=== PATIENT | female | born 1975 | race Asian ===

== ENCOUNTER → 2023-12-27 | Outpatient (CLI) | payer OTHER, SELFPAY ==
[2023-12-27 16:08] LABS: ALB/GLOB Ratio 0.9 RATIO (0.9-2.4); AST(SGOT) 21 U/L (15-37); Alanine Aminotransfer ALT/SGPT 32 U/L (13-56); Albumin, Serum 3.7 g/dL (3.2-5.0); Alkaline Phosphatase 71 U/L (45-117); Anion Gap 6 (5-15); BUN 19 mg/dL (7-18); BUN/Creat Ratio 23.4 RATIO (10-20); Calcium,Total 9.3 mg/dL (8.5-10.1); Chloride 108 mmol/L (98-107); Creatinine, Serum 0.81 mg/dL (0.55-1.02); EST Glomerular Filtration Rate 79 mL/min (>60); Est Glom Filt Rate - Afr Amer 96 mL/min (>60); Glucose 95 mg/dL (74-106); Potassium 4.5 mmol/L (3.5-5.1); Protein, Total 7.7 g/dL (6.4-8.2); Sodium Level 140 mmol/L (136-145)
== END | disposition home or self-care (01) ==
LOC: BIMLAB 11:55
PROVIDERS: Visit Provider Family Medicine
DX: I10 Essential (primary) hypertension (principal)
CPT/HCPCS: 36415; 80053

== ENCOUNTER → 2025-01-29 | Outpatient (CLI) | payer MEDICAID, SELFPAY ==
[2025-01-29 15:19] LABS: Hematocrit 41.0 % (37-47); Hemoglobin 13.8 g/dL (12.0-15.0); Immature Granulocytes Count 0.020 X10^3/uL (0.0-0.0); Mean Corp Hgb Conc 33.7 g/dL (32-36); Mean Corpuscular Volume 95.3 fL (81-99); Mean Platelet Vol. 10.9 fl (6.2-12.0); NRBC Flagged by Analyzer 0 % (0-5); Platelet Count 241 K/mm3 (150-450); RBC Distribution Width CV 12.0 % (11.6-14.6); RBC Distribution Width SD 42.4 fl (35.1-43.9); Red Blood Count 4.30 M/mm3 (4.2-5.4); White Blood Count 7.8 K/mm3 (4.4-11.0)
[2025-01-29 15:39] LABS: AST(SGOT) 23 U/L (<=31); Alanine Aminotransfer ALT/SGPT 19 U/L (<=34); Albumin, Serum 4.6 g/dL (3.5-5.0); Alkaline Phosphatase 62 U/L (35-104); Anion Gap 12 (5-15); BUN 22 mg/dL (4-19); BUN/Creat Ratio 30.4 RATIO (10-20); Calcium,Total 9.4 mg/dL (7.6-11.0); Carbon Dioxide 24.0 mmol/L (21.0-32.0); Chloride 106 mmol/L (98-108); Globulin 3.0 g/dL (2.2-4.2); Glucose 89 mg/dL (70-99); Potassium 4.3 mmol/L (3.3-5.1)
--- OUTSIDE RECORDS SUMMARY | 2025-01-29 16:41 | XMS RPT_ITS | CCD ---
Author Organization [facility] Care Team Providers Care Pipe Changer Name Role Phone VOLSTEPHANIE Llamas DO Unavailable Unavailable VOLL, STEPHANIE DO Unavailable Unavailable JEANE TORO CNP Unavailable Unavailable VOLL, STEPHANIE DO Unavailable Unavailable JEANE TORO CNP Unavailable Unavailable PROVIDER, UNKNOWN Unavailable Unavailable PROVIDER, UNKNOWN Unavailable Unavailable JEANE TORO CNP Unavailable Unavailable JEANE TORO CNP Unavailable Unavailable JEANE TORO CNP Unavailable Unavailable JEANE TORO CNP Unavailable Unavailable PROVIDER, UNKNOWN Unavailable Unavailable PROVIDER, UNKNOWN Unavailable Unavailable EJANE TORO CNP Admitting Unavailable JEANE TORO CNP Attending Unavailable JEANE TORO CNP Consulting Unavailable JEANE TORO CNP Primary Care Unavailable PROVIDER, UNKNOWN Consulting Unavailable PROVIDER, UNKNOWN Consulting Unavailable Cortez Lynch Attending Unavailable Cortez Lynch Attending Unavailable Problems Active Problems Problem Classification Problem Date Documented Da te Episodic/Chronic Disorders of teeth and jaw (1 source) Disorder of teeth and supporting structures, unspecified; Translations: [Disorder of teeth and supporting structures, unspecified] Onset: 01-05-2024 Episodic Essential hypertension (1 source) Essential (primary) hypertension; Translations: [Essential (primary) hypertension] Onset: 01-11-2024 Chronic Other nutritional; endocrine; and metabolic disorders (3 sources) Overweight; Translations: [Overweight] Onset: 02-16-2022 Episodic Other screening for suspected conditions (not mental disorders or infectious disease) (2 sources) Encounter for screening for lipoid disorders; Translations: [Encounter for screening for diseases of the blood and blood-forming organs and certain disorders involving the immune mechanism] Onset: 02-16-2022 Episodic Residual codes; unclassified (1 source) Asymptomatic menopausal state; Translations: [Asymptomatic menopausal state] Onset: 01-05-2024 Episodic Past or Other Problems Problem Classification Problem Date Documented Da te Episodic/Chronic Medical examination/evaluation (1 source) Encounter for general adult medical examination with abnormal findings; Translations: [Encounter for general adult medical examination with abnormal findings] Onset: 07-04-2017 Episodic Results Test Name Value Interpretation Reference Range Facility Comprehensive Metabolic Prof lopez 12-27-2023 Albumin [Mass/Vol] 3.7 g/dL Normal 3.2-5.0 [facility] Comment on above: Performed By: #### L 500.4050 #### [facility] [address] [place], [address] Albumin/Globulin [Mass ratio] 0.9 {ratio} Normal 0.9-2.4 [facility] Comment on above: Performed By: #### L 500.4050 #### [facility] [address] [place], [address] ALK P 71 U/L Normal 45-117 [facility] Comment on above: Performed By: #### L 500.4050 #### [facility] [address] [place], [address] ALT [Catalytic activity/Vol] 32 U/L Normal 13-56 [facility] Comment on above: Performed By: #### L 500.4050 #### [facility] [address] [place], [address] AST [Catalytic activity/Vol] 21 U/L Normal 15-37 [facility] Comment on above: Performed By: #### L 500.4050 #### [facility] [address] [place], [address] Bilirubin [Mass/Vol] 0.60 mg/dL Normal 0.20-1.00 [facility] Comment on above: Result Comment: For patients on eltrombopag therapy, use of Dimension Sidney TBIL is not recommended. Performed By: #### L 500.4050 #### [facility] [address] [place], [address] BUN/CRE 23.4 RATIO High 10-20 [facility] Comment on above: Performed By: #### L 500.4050 #### [facility] [address] [place], [address] CA,Total 9.3 mg/dL Normal 8.5-10.1 [facility] Comment on above: Performed By: #### L 500.4050 #### [facility] [address] [place], [address] Chloride [Moles/Vol] 108 mmol/L High 98-107 [facility] Comment on above: Performed By: #### L 500.4050 #### [facility] [address] [place], [address] CO2 [Moles/Vol] 26.0 mmol/L Normal 21.0-32.0 [facility] Comment on above: Performed By: #### L 500.4050 #### [facility] [address] [place], [address] Creatinine [Mass/Vol] 0.81 mg/dL Normal 0.55-1.02 [facility] Comment on above: Result Comment: The validity of the calculated GFR GFRAA in patients over 70 years has not been determined. Clinical correlation is essential. Performed By: #### L 500.4050 #### [facility] [address] [place], [address] EST GFR - AA 96 mL/min Normal >60 [facility] Comment on above: Result Comment: Afri can Zambian GFR Calc Performed By: #### L 500.4050 #### [facility] [address] [place], [address] GAP 6 Normal 5-15 [facility] Comment on above: Performed By: #### L 500.4050 #### [facility] [address] [place], [address] GFR/1.73 sq M.predicted among non-blacks MDRD (S/P/Bld) [Vol rate/Area] 79 mL/min/{1.73_m2} Normal >60 [facility] Comment on above: Result Comment: Non- GFR Calc Performed By: #### L 500.4050 #### [facility] [address] [place], [address] Globulin (S) [Mass/Vol] 4.0 g/dL Normal 2.2-4.2 [facility] Comment on above: Performed By: #### L 500.4050 #### [facility] [address] [place], [address] Glucose [Mass/Vol] 95 mg/dL Normal 74-106 [facility] Comment on above: Performed By: #### L 500.4050 #### [facility] [address] [place], [address] Potassium [Moles/Vol] 4.5 mmol/L Normal 3.5-5.1 [facility] Comment on above: Performed By: #### L 500.4050 #### [facility] [address] [place], [address] Sodium [Moles/Vol] 140 mmol/L Normal 136-145 [facility] Comment on above: Performed By: #### L 500.4050 #### [facility] [address] [place], [address] T PROT 7.7 g/dL Normal 6.4-8.2 [facility] Comment on above: Performed By: #### L 500.4050 #### [facility] [address] [place], [address] Urea nitrogen [Mass/Vol] 19 mg/dL High 7-18 [facility] Comment on above: Performed By: #### L 500.4050 #### [facility] [address] [place], [address] Internal Medicine Office Vis nolan 12-27-2023 Internal Medicine Office Visit [facility] [address] [place] [address] [place] [address] OFFICE VISIT Date of Service: 12/27/23 MR#: [id number] Acct: [id number] Name: EPIFANIO STOKES Rep #: [id number] : 1975 Provider: Dr. Cortez henderson DO Age/Sex: 48/F Location[place] [facility] Status: Signed Intake Vital Signs 12/27/23 11:21 Height 4 ft 10 in Weight: 143 lb BMI 29.9 BP 128/88 H Blood Pressure Location Lt brachial Position Sitting Respiration 14 Pulse 68 Pulse Source Monitor Temp 97.5 F L Temp Source Temporal Pulse Oximetry (%) 98 Oxygen Delivery Method room air Intake Visit Reasons: EST NEW PT - [facility] SENT Chief Complaint: Establishing with a new physician. Product Designer Required: No Is patient in pain?: No Allergies No Known Allergies Allergy (Unverified 12/27/23 11:10) Medications ???Medication ???Instructions ???Recorded ???Confirmed ???Type ascorbic acid (vitamin C) 100 mg 100 mg PO DAILY 12/27/23 12/27/23 History tablet calcium citrate 200 mg (950 mg) 200 mg PO DAILY 12/27/23 12/27/23 History tablet ferrous sulfate 325 mg (65 mg 325 mg PO DAILY 12/27/23 12/27/23 History iron) tablet (Feosol) lisinopril 20 mg tablet 20 mg PO QDAY 12/27/23 12/27/23 History omega 4-xim-gin-fish oil 300 1 cap PO DAILY 12/27/23 12/27/23 History mg-1,000 mg capsule (Fish Oil) Nurse's Note: Has not had a period since august, last was 2013 . Has also been experiencing hot flashes. Denies vaginal dryness or other sx's. Has not had a pap smear since 2013, or a breast exam. [facility] Medical History (Updated 12/27/23 @ 12:[address] 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 Details: EPIFANIO STOKES, is a 48 F who presents to the office today for an office visit to establish care. She has not had a period for 6 months and initially had some fairly severe hot flashes but at this time they have eased off. ROS Const Constitutional: No body ache, chills, excessive sweating, fatigue, fever(s), frequent falls, headache(s), snoring, weakness, sleep problems or change in appetite Eyes Eyes: No blurry vision, change in vision, eye pain or Light sensitivity ENT ENT: No abnormal hearing, ear or mastoid pain, tinnitus, nasal congestion, headache(s), neck pain or sore throat Resp Respiratory: No cough, shortness of breath, snoring or wheezing Cardio Cardiology: No chest pain at rest, chest pain with exertion, excessive sweating, shortness of breath, dyspnea on exertion, lightheadedness, orthopnea or palpitations Gastro GI: No abdominal pain, change in bowel habits, constipation, cramping, diarrhea, nausea/dyspepsia or vomiting Genitourinary-Female: Positive for absent period; No burning urination, painful urination, urinary incontinence, urinary frequency, abnormal vaginal bleeding or pelvic pain Musc Musculoskeletal: No abnormal gait, joint pain, back pain, limited range of motion, neck pain or numbness Skin Skin: No dry skin, redness, lesions, itchy eyes, rash or wounds Neuro Neurology: No abnormal gait, abnormal hearing, weakness, frequent falls, headache(s), memory loss or numbness Psych Psychiatric: No anxiety, No change in appetite, No depression, No memory loss and No Thoughts of harming yourself/Others Endo Endocrine: No cold intolerance, excessive sweating, fatigue, flushing, heat intolerance, increased thirst/drinking or increased hunger Aller/Imm Allergy/Immunologic: No itchy eyes, seasonal allergy symptoms, hives or wheezing Roberto/Lymp Hematologic/Lymphatic: No easy bleeding, easy bruising, enlarged lymph nodes or other Exam Const General: cooperative and healthy appearing Nutritional Appearance: average body habitus Orientation: oriented x3 Limitations: language barrier (Her Kittitian is quite good but she has some difficulty reading Kittitian.) [facility] Head: normal to inspection Ears: hearing grossly normal bilaterally and EAC abnormal excessive cerumen on the left Nose: external nose normal Face and sinus: normal facial exam Mouth: oral mucosae normal Teeth and gingiva: poor dentition Eyes General: appearance normal, both eyes and al (more content not included)... Normal [facility] CBC + DIFFon 02-16-2022 Baso # 0.00 x10EE3/UL Normal 0.00 - 0.10 [facility] Comment on above: Performed By: #### 2 97585 #### [facility],[address] [place] [address] 20007 Basophils/100 WBC (Bld) 0.8 % Normal 0.0 - 2.0 [facility] Comment on above: Performed By: #### 2 52287 #### [facility],[address] [place] [address] CBC + DIFF Normal [facility] Comment on above: Result Comment: CBC- COMPLETE BLOOD COUNT Performed By: #### 2 71569 #### [facility],[address] [place] [address] 37771 EO # 0.10 x10EE3/UL Normal 0.00 - 0.50 [facility] Comment on above: Performed By: #### 2 22813 #### [facility],[address] [place] [address] Eosinophils/100 WBC (Bld) 1.0 % Normal 0.0 - 7.0 [facility] Comment on above: Performed By: #### 2 72329 #### [facility],[address] [place] [address] Erythrocyte distribution width (RBC) [Ratio] 16.4 % High 12.0 - 15.6 [facility] Comment on above: Performed By: #### 2 19413 #### [facility],[address] [place] [address] 39875 Hematocrit (Bld) [Volume fraction] 30.8 % Low 34.0 - 46.0 [facility] Comment on above: Performed By: #### 2 91103 #### [facility],[address] [place] [address] 62672 Hemoglobin (Bld) [Mass/Vol] 9.6 g/dL Low 12.0 - 16.0 [facility] Comment on above: Performed By: #### 2 56588 #### [facility],[address] [place] [address] 91116 Lymph # 1.70 x10EE3/UL Normal 0.80 - 2.80 [facility] Comment on above: Performed By: #### 2 86056 #### [facility],[address] [place] [address] 55392 Lymphocytes/100 WBC (Bld) 32.3 % Normal 20.0 - 45.0 [facility] Comment on above: Performed By: #### 2 15187 #### [facility],[address] [place] [address] 41730 MANUAL DIFF N/A Normal [facility] Comment on above: Performed By: #### 2 50095 #### [facility],[address] [place] [address] 75507 MCH (RBC) [Entitic mass] 26 pg Low 27 - 33 [facility] Comment on above: Performed By: #### 2 97805 #### [facility],[address] [place] [address] 02381 MCHC 31 X10 3 Low 32 - 36 [facility] Comment on above: Performed By: #### 2 50822 #### [facility],[address] [place] [address] 72026 MCV (RBC) [Entitic vol] 84 fL Normal 80 - 99 [facility] Comment on above: Performed By: #### 2 04519 #### [facility],[address] [place] [address] 59138 Graham # 0.40 x10EE3/UL Normal 0.20 - 1.00 [facility] Comment on above: Performed By: #### 2 27341 #### [facility],[address] [place] [address] 90981 MONOS % 7.1 % Normal 0.0 - 10.0 [facility] Comment on above: Performed By: #### 2 24377 #### [facility],[address] [place] [address] 54030 Morphology Tripp (Bld) [Interp] N/A Normal [facility] Comment on above: Result Comment: {CD] Performed By: #### 2 95112 #### [facility],[address] [place] [address] 69320 Neut # 3.10 x10EE3/UL Normal 1.50 - 7.10 [facility] Comment on above: Performed By: #### 2 06144 #### [facility],[address] [place] [address] 33622 Neutrophils/100 WBC (Bld) 58.8 % Normal 46.0 - 76.0 [facility] Comment on above: Performed By: #### 2 21350 #### [facility],[address] [place] [address] 46729 PLATELET 333 x10EE3/UL Normal 150 - 450 [facility] Comment on above: Performed By: #### 2 12093 #### [facility],[address] [place] [address] 40170 Platelet mean volume (Bld) [Entitic vol] 8.6 fL Normal 6.6 - 10.5 [facility] Comment on above: Result Comment: AUTO MATED DIFFERENTIAL Performed By: #### 2 07187 #### [facility],[address] [place] [address] 27389 RBC 3.66 x 10EE6/UL Low 4.10 - 5.30 [facility] Comment on above: Performed By: #### 2 21185 #### [facility],[address] [place] [address] 92680 WBC 5.3 x 10EE3/UL Normal 4.5 - 10.8 [facility] Comment on above: Performed By: #### 2 45108 #### [facility],[address] [place] [address] 55465 CMP with eGFRon 02-16-2022 AGE 46 years Normal [facility] Comment on above: Performed By: #### 2 42232 #### [facility],[address] [place] [address] 35180 Albumin [Mass/Vol] 3.6 g/dL Normal 3.4 - 5.0 [facility] Comment on above: Performed By: #### 2 63358 #### [facility],[address] [place] [address] 72164 Albumin/Globulin [Mass ratio] 1.0 {ratio} Normal 0.9 - 1.6 [facility] Comment on above: Performed By: #### 2 79525 #### [facility],[address] [place] [address] 36773 ALK PHOS 50 U/L Normal 46 - 116 [facility] Comment on above: Performed By: #### 2 66272 #### [facility],[address] [place] [address] 89281 ALT [Catalytic activity/Vol] 23 U/L Normal 14 - 59 [facility] Comment on above: Performed By: #### 2 01221 #### [facility],[address] [place] [address] 00144 Anion gap [Moles/Vol] 12 mmol/L Normal 10 - 20 [facility] Comment on above: Performed By: #### 2 34397 #### [facility],[address] [place] [address] 74942 AST [Catalytic activity/Vol] 17 U/L Normal 13 - 39 [facility] Comment on above: Performed By: #### 2 33318 #### [facility],[address] [place] [address] 02517 B/C RATIO 24 ratio Normal 0 - 30 [facility] Comment on above: Performed By: #### 2 70486 #### [facility],[address] [place] [address] 30256 Bilirubin [Mass/Vol] 0.5 mg/dL Normal 0.2 - 1.0 [facility] Comment on above: Performed By: #### 2 08506 #### [facility],[address] [place] [address] 04281 Calcium [Mass/Vol] 7.8 mg/dL Low 8.5 - 10.1 [facility] Comment on above: Performed By: #### 2 62511 #### [facility],[address] [place] [address] 33900 Chloride [Moles/Vol] 106 mmol/L Normal 98 - 107 [facility] Comment on above: Performed By: #### 2 49890 #### [facility],[address] [place] [address] 86789 CMP with eGFR Normal [facility] Comment on above: Result Comment: COMP REHENSIVE METABOLIC PANEL Performed By: #### 2 63250 #### [facility],[address] [place] [address] 19372 CO2 [Moles/Vol] 27.7 mmol/L Normal 21.0 - 32.0 [facility] Comment on above: Performed By: #### 2 33872 #### [facility],[address] [place] [address] 00410 Creatinine [Mass/Vol] 0.72 mg/dL Normal 0.55 - 1.02 [facility] Comment on above: Performed By: #### 2 06743 #### [facility],[address] [place] [address] 54265 GFR/1.73 sq M.predicted among non-blacks MDRD (S/P/Bld) [Vol rate/Area] mL/min/{1.73_m2} Normal 60 - 999 [facility] Comment on above: Performed By: #### 2 33913 #### [facility],[address] [place], [place] [address] Result Comment: ACCO RDING TO THE NATIONAL KIDNEY DISEASE EDUCATION PROGRAM(NKDE), A NORMAL eGFR IS A VALUE GREATER THAN OR EQUAL TO 60 ML/MIN/1.73 SQ METERS. CHRONIC KIDNEY DISEASE: <60mL/MIN/1.73 SQ METERS KIDNEY FAILURE: <15mL/MIN/1.73 SQ METERS THIS TEST SHOULD ONLY BE USED FOR PATIENTS 18 YEARS OF AGE AND OLDER. Globulin (S) [Mass/Vol] 3.6 g/dL Normal 1.5 - 3.8 [facility] Comment on above: Performed By: #### 2 88286 #### [address] [address] Glucose [Mass/Vol] 74 mg/dL Normal 74 - 106 [facility] Comment on above: Performed By: #### 2 44573 #### [address] [address] Potassium [Moles/Vol] 3.9 mmol/L Normal 3.5 - 5.1 [facility] Comment on above: Performed By: #### 2 26046 #### [address] [address] Protein [Mass/Vol] 7.2 g/dL Normal 6.4 - 8.2 [facility] Comment on above: Performed By: #### 2 72373 #### [address] [address] Sodium [Moles/Vol] 142 mmol/L Normal 136 - 145 [facility] Comment on above: Performed By: #### 2 35530 #### [address] [address] Urea nitrogen [Mass/Vol] 17 mg/dL Normal 7 - 18 [facility] Comment on above: Performed By: #### 2 76193 #### [facility],[address] [place] [address] 64482 LIPID PROFILEon 02-16-2022 Cholesterol [Mass/Vol] 163 mg/dL Normal 0 - 240 [facility] Comment on above: Performed By: #### 2 47733 #### [facility],[address] [place] [address] 57598 Cholesterol in HDL [Mass/Vol] 64 mg/dL High 40 - 60 [facility] Comment on above: Performed By: #### 2 08255 #### [facility],[address] [place] [address] 12686 Cholesterol in LDL [Mass/Vol] 83 mg/dL Normal 0 - 129 [facility] Comment on above: Performed By: #### 2 03584 #### [facility],[address] [place] [address] 59044 Cholesterol.total/C holesterol in HDL [Mass ratio] 2.5 {ratio} Normal 0.0 - 5.0 [facility] Comment on above: Performed By: #### 2 12769 #### [facility],[address] [place] [address] 47104 Lipid 1996 panel Normal [facility] Comment on above: Result Comment: LIPI D PROFILE Performed By: #### 2 39201 #### [facility],[address] [place] [address] 64163 Triglyceride [Mass/Vol] 82 mg/dL Normal 0 - 150 [facility] Comment on above: Performed By: #### 2 98773 #### [facility],[address] [place] [address] 94282 CHLAMYDIA & GC RNA TMA [QUES T]on 07-05-2017 CHLAMYDIA & GC RNA TMA [QUEST] Normal [facility] Comment on above: Result Comment: _CHL AMYDIA/NEISSERIA GONORRHOEAE RNA,TMA_CHLAMYDIA TRACHOMATIS/NEISSERIA GONORRHOEAE TMAReported: 07/05/2017 17:54 Status=F TEST RESULT FLAG RANGE UNITS C. TRACHOMATIS RNA, TMA Not Detected Not Detected 07/05/17.rfl.COMPLETE.AMRR .[id number]. GONORRHOEAE RNA, TMA Not Detected Not Detected 07/05/17.rfl.COMPLETE.AMRR .[id number] test was performed using the APTIMA COMBO2(R)Assay (GEN-PROBE(R)).The analytical performance characteristics of thisassay, when used to test SurePath(R) specimens havebeen determined by [employer].Test Performed by [facility],[address] [place] [address]Fakekorpaul Costello M.D., Ph.D., Director of [phone], [facility] [id number] Performed By: #### 2 03347 ####[address] [address] CBCon 07-04-2017 Basophils Auto #/vol (Bld) 0.00 x10EE3/UL Normal 0.00 - 0.10 [facility] Comment on above: Performed By: #### 2 80115 ####[facility],[address] [place], [place] [address] Basophils/100 WBC Auto (Bld) 0.4 % Normal 0.0 - 2.0 [facility] Comment on above: Performed By: #### 2 37771 ####[facility],[address] [place] [address] Blood morphology N/A Normal [facility] Comment on above: Result Comment: {CD] Performed By: #### 2 18125 ####[facility],[address] [place] [address] CBC Normal [facility] Comment on above: Result Comment: CBC- COMPLETE BLOOD COUNT Performed By: #### 2 95217 ####[facility],[address] [place] [address] Eosinophils 0.10 x10EE3/UL Normal 0.00 - 0.50 [facility] Comment on above: Performed By: #### 2 21301 ####[facility],[address] [place] [address] Eosinophils/100 leukocytes 1.1 % Normal 0.0 - 7.0 [facility] Comment on above: Performed By: #### 2 03280 ####[facility],[address] [place] [address] Erythrocyte distribution width Auto Ratio (RBC) 15.9 % High 12.0 - 15.6 [facility] Comment on above: Performed By: #### 2 98693 ####[facility],[address] [place] [address] Erythrocytes (RBC) 4.03 x 10EE6/UL Low 4.10 - 5.30 [facility] Comment on above: Performed By: #### 2 80894 ####[facility],[address] [place], [place] [address] Hematocrit (HCT) 35.1 % Normal 34.0 - 46.0 [facility] Comment on above: Performed By: #### 2 75883 ####[facility],[address] [place] [address] Hemoglobin mass conc (Bld) 11.5 g/dL Low 12.0 - 16.0 [facility] Comment on above: Performed By: #### 2 06961 ####[facility],[address] [place] [address] Lymphocytes 2.20 x10EE3/UL Normal 0.80 - 2.80 [facility] Comment on above: Performed By: #### 2 [id number] ####[facility],[address] [place] [address] Lymphocytes/100 leukocytes 31.1 % Normal 20.0 - 45.0 [facility] Comment on above: Performed By: #### 2 70824 ####[facility],[address] [place] [address] MANUAL DIFF N/A Normal [facility] Comment on above: Performed By: #### 2 75819 ####[facility],[address] [place] [address] MCH 29 pg Normal 27 - 33 [facility] Comment on above: Performed By: #### 2 44867 ####[facility],[address] [place] [address] MCHC mass conc (RBC) 33 X10 3 Normal 32 - 36 [facility] Comment on above: Performed By: #### 2 88677 ####[facility],[address] [place] [address] MCV 87 fL Normal 80 - 99 [facility] Comment on above: Performed By: #### 2 82042 ####[facility],[address] [place] [address] Monocytes 0.60 x10EE3/UL Normal 0.20 - 1.00 [facility] Comment on above: Performed By: #### 2 52221 ####[facility],[address] [place], [place] [id number] MONOS % 8.1 % Normal 0.0 - 10.0 [facility] Comment on above: Performed By: #### 2 80792 ####[facility],[address] [place] [address] 40197 Neutrophils 4.30 x10EE3/UL Normal 1.50 - 7.10 [facility] Comment on above: Performed By: #### 2 87830 ####[facility],[address] [place] [address] 17200 Neutrophils/100 WBC Auto (Bld) 59.3 % Normal 46.0 - 76.0 [facility] Comment on above: Performed By: #### 2 73604 ####[facility],[address] [place] [address] 29117 Platelet mean volume (PMV) 8.6 fL Normal 6.6 - 10.5 [facility] Comment on above: Result Comment: AUTO MATED DIFFERENTIAL Performed By: #### 2 67765 ####[facility],[address] [place] [address] 21890 Platelets 243 x10EE3/UL Normal 150 - 450 [facility] Comment on above: Performed By: #### 2 71805 ####[facility],[address] [place] [address] 08622 WBC (Leukocytes) 7.2 x 10EE3/UL Normal 4.5 - 10.8 [facility] Comment on above: Performed By: #### 2 45429 ####[facility],[address] [place] [address] 61155 CMP with eGFRon 07-04-2017 Age 42 years Normal [facility] Comment on above: Performed By: #### 2 13035 ####[facility],[address] [place] [address] 28534 Albumin 4.3 g/dL Normal 3.4 - 4.8 [facility] Comment on above: Performed By: #### 2 71705 ####[facility],[address] [place] [address] 09584 Albumin/Globulin Ratio 1.5 {ratio} Normal 0.9 - 1.6 [facility] Comment on above: Performed By: #### 2 34585 ####[facility],[address] [place] [address] 55166 ALK PHOS 36 U/L Low 38 - 126 [facility] Comment on above: Performed By: #### 2 68105 ####[facility],[address] [place] [address] 60046 ALT/SGPT 13 U/L Normal 8 - 35 [facility] Comment on above: Performed By: #### 2 94918 ####[facility],[address] [place] [address] 43338 Anion gap 10 mmol/L Normal 10 - 20 [facility] Comment on above: Performed By: #### 2 72844 ####[facility],[address] [place] [address] 52072 AST/SGOT 15 U/L Normal 13 - 39 [facility] Comment on above: Performed By: #### 2 68391 ####[facility],[address] [place] [address] 95923 B/C RATIO 24 ratio Normal 0 - 30 [facility] Comment on above: Performed By: #### 2 53839 ####[facility],[address] [place] [address] 42830 Bilirubin (total) 0.4 mg/dL Normal 0.0 - 1.5 [facility] Comment on above: Performed By: #### 2 00793 ####[facility],[address] [place] [address] 95963 Calcium 8.7 mg/dL Normal 8.6 - 10.2 [facility] Comment on above: Performed By: #### 2 02378 ####[facility],[address] [place] [address] 07809 Chloride 105 mmol/L Normal 98 - 107 [facility] Comment on above: Performed By: #### 2 72231 ####[facility],[address] [place] [address] 39514 CO2 28.5 mmol/L Normal 21.0 - 31.0 [facility] Comment on above: Performed By: #### 2 38729 ####[facility],[address] [place] [address] 20369 Creatinine 0.7 mg/dL Normal 0.6 - 1.2 [facility] Comment on above: Performed By: #### 2 61033 ####[facility],[address] [place] [address] 78974 eGFR (non-black) Normal [facility] Comment on above: Result Comment: COMP REHENSIVE METABOLIC PANEL Performed By: #### 2 52502 ####[facility],[address] [place] [address] 39552 eGFR (non-black) mL/min/{1.73_m2} Normal 60 - 999 [facility] Comment on above: Result Comment: ACCO RDING TO THE NATIONAL KIDNEY DISEASE EDUCATION PROGRAM(NKDE), A NORMAL eGFRIS A VALUE GREATER THAN OR EQUAL TO 60 ML/MIN/1.73 SQ METERS.CHRONIC KIDNEY DISEASE: <60mL/MIN/1.73 SQ METERSKIDNEY FAILURE: <15mL/MIN/1.73 SQ METERSTHIS TEST SHOULD ONLY BE USED FOR PATIENTS 18 YEARS OF AGE AND OLDER. Performed By: #### 2 34598 ####[facility],[address] [place] [address] 17040 Globulin 2.9 g/dL Normal 1.5 - 3.8 [facility] Comment on above: Performed By: #### 2 80319 ####[facility],[address] [place] [address] 31153 Glucose mass conc 95 mg/dL Normal 74 - 106 [facility] Comment on above: Performed By: #### 2 40342 ####[facility],[address] [place] [address] 83658 Potassium molar conc 3.8 mmol/L Normal 3.5 - 5.1 [facility] Comment on above: Performed By: #### 2 65481 ####[facility],[address] [place] [address] 66394 Protein 7.2 g/dL Normal 6.4 - 8.3 [facility] Comment on above: Performed By: #### 2 99201 ####[facility],[address] [place] [address] 25714 Sodium 140 mmol/L Normal 136 - 145 [facility] Comment on above: Performed By: #### 2 95533 ####[facility],[address] [place] [address] 72011 Urea nitrogen 17 mg/dL Normal 6 - 20 [facility] Comment on above: Performed By: #### 2 40204 ####[facility],[address] [place] [address] 92523 LIPID PROFILEon 07-04-2017 Cholesterol 148 mg/dL Normal 0 - 200 [facility] Comment on above: Performed By: #### 2 28542 ####[facility],[address] [place] [address] 08269 Cholesterol to HDL Ratio 2.2 {ratio} Normal 0.0 - 5.0 [facility] Comment on above: Performed By: #### 2 09387 ####[facility],[address] [place] [address] 66673 HDL Cholesterol 66 mg/dL High 40 - 60 [facility] Comment on above: Performed By: #### 2 57979 ####[facility],[address] [place] [address] 42946 LDL Cholesterol 60 mg/dl Normal 0 - 129 [facility] Comment on above: Performed By: #### 2 87434 ####[facility],[address] [place] [address] 33557 LIPID PROFILE Normal [facility] Comment on above: Result Comment: LIPI D PROFILE Performed By: #### 2 53845 ####[facility],[address] [place] [address] 81871 Triglyceride 111 mg/dL Normal 0 - 150 [facility] Comment on above: Performed By: #### 2 66049 ####[facility],[address] [place] [address] 25610 EMERGENCY DEPARTMENT SUMMARY on 06-07-2017 EMERGENCY DEPARTMENT SUMMARY [facility] EMERGENCY DEPARTMENT SUMMARY NAME NUMBER SEX AGE ADMIT DISC TYPE MED.RECORD# DIVYA GODFREY [id number] F [id number] 05/29/17 05/29/17 E.R. [id number] ROOM:ER DATE OF :1975 PHYSICIAN NO.:[id number] PHYSICIAN NAME:STEPHANIE CANELA DO PHYSICIAN:MUNA CHING CNP HISTORY OF PRESENT ILLNESS: The patient is a 41-year-old female who presents for influenza like illness. The patient states over the last 3 days she has had worsening nausea, no vomiting, body aches, as well as a high fever. The patient states that she has also had a headache. The patient states that she has had no other associated symptoms, has felt hungry; however, has not eaten. The patient states she has tolerated p.o. fluids. The patient has no other complaints at this time. REVIEW OF SYSTEMS: Positive for headache, myalgias, arthralgias. Remainder of review of systems is unremarkable. PHYSICAL EXAMINATION: Vitals: Temperature 100.2, pulse 110, respirations 20, blood pressure 139/86, O2 sat 97% on room air. Constitutional: The patient looks like she does not feel well, nontoxic appearing, alert, oriented. HEENT: Normocephalic and atraumatic. PERRLA. EOMI. TMs clear bilaterally. Moist mucous membranes. Negative for edema, erythema, or exudative discharge. Negative for meningeal signs, tracheal deviation, or lymphadenopathy. Cardiac: Regular rate and rhythm. Negative for murmurs, rubs, or gallops. Positive S1, S2. Pulmonary: Clear to auscultation bilaterally. Negative for wheezes, rales, or crackles. Abdomen was soft, nontender, and nondistended. Normal bowel sounds in all 4 quadrants. Negative for Boyer's or McBurney's. Musculoskeletal: Normal radial and DP pulses bilaterally. Negative for lower extremity edema, ulcerations, or skin breakdown, petechiae, or purpura. DIAGNOSTIC DATA: Positive of influenza A. EMERGENCY DEPARTMENT COURSE AND TREATMENT: At this time, the patient has been diagnosed with the flu. The patient was given Zofran 4 mg, as well as naproxen and Benadryl in the ED as the patient was having difficulty sleeping. We did give the patient a prescription for naproxen and promethazine upon discharge. DIAGNOSIS: Influenza A. PLAN/DISPOSITION: The patient has been instructed that she is going to feel quite uncomfortable for the next several days secondary to the flu. The patient has been instructed to follow up with her primary care physician in the next 24 to 48 hours and has been given indications to return to the ED if any of her symptoms worsen or change. At this time, the patient has been discharged home for follow up with her primary care doctor. The patient has no other associated symptoms. D: Stephanie Canela DO TD: 18:44 JOB #: [id number] Electronically signed by: STEPHANIE CANELA DO 06/07/17 09:04 Transcribed by: am 05/30/2017 14:06 STEPHANIE CANELA DO 06/07/17 09:04 Normal [facility] INFLUENZA VIRUS RAPID A/Bon 05-29-2017 INFLUENZA VIRUS RAPID A/B INFLUENZA APOSITIVEINFLUENZA BNEGATIVEINTERNAL NEG QCPASSINTERNAL POS QCPASSEXTERNAL QC DONE?YESACCORDING TO THE FOOD SAFETY TECHNICIAN, THE PERFORMANCE OF THIS TEST HAS NOT BEENVALIDATED FOR DETECTION OF THE 2008 H1N1 INFLUENZA A VIRUS OF SWINE ORIGIN.THE TEST HAS BEEN DEMONSTRATED TO DETECT MULTIPLE STRAINS OF INFLUENZA A OFHUMAN ORIGIN IN CLINICAL SPECIMENS,BUT THE SWINE FLU INVOLVED IN THE CURRENTOUTBREAK IS A NEWLY EMERGENT STRAIN.THEREFORE, THE PERFORMANCE OF CURRENT RAPIDTESTS,INCLUDING THIS ONE, HAS NOT BEEN ESTABLISHED FOR THE DETECTION OF THECURRENT SWINE FLU IN INFECTED PATIENTS. Normal [facility] Comment on above: Performed By: #### 2 80705 ####[facility],[address] [place] [address] 40779 Encounters Encounter Date Encounter Type Care Provider Facility Start: 12-27-2023 End: 12-27-2023 [place] [place]: 12-27-2023 End: 12-27-2023 ambulatory [place] [facility] Facility:[facility] Start: 02-16-2022 End: 02-16-2022 ambulatory JEANE PEREZ [facility] Start: 07-04-2017 End: 07-04-2017 Ambulatory JEANE PEREZ [facility] Start: 05-29-2017 End: 05-29-2017 Emergency department patient visit STEPHANIE ZAIDI [facility] Payers Date Payer Category Payer Self-pay 2023 Unknown [id number] 1975 Unknown [id number] [id number] Unknown [id number] Unknown [id number] Unknown [id number] Unknown [id number] [id number] Summary Purpose Family History No Family History Records FoundNo Family History Records FoundNo Family History Records Found Advance Directives No Advanced Directives Records FoundNo Advanced Directives Records FoundNo Advanced Directives Records Found Additional Source Comments INFORMATION SOURCE (unrecogn ized section and content) DATE CREATED AUTHOR 10/28/2017 [facility] DATE CREATED AUTHOR AUTHOR'S ORGANIZ ATION 03/16/2022 [facility] DATE CREATED AUTHOR AUTHOR'S ORGANIZ ATION 01/13/2024 [facility] FOR RECORDS PERTAINING TO PATIENTS WHO ARE OR HAVE BEEN ENROLLED IN A CHEMICAL DEPENDENCY/SUBSTANCEABUSE PROGRAM, SOME INFORMATION MAY BE OMITTED. This clinical summary was aggregated from multiple sources. Caution should be exercised in using it in the provision of clinical care. This summary normalizes information from multiple sources, and as a consequence, information in this document may materially change the coding, format and clinical context of patient data. In addition, data may be omitted in some cases. CLINICAL DECISIONS SHOULD BE BASED ON THE PRIMARY CLINICAL RECORDS. [facility] [employer] [facility]. provides no warranty or guarantee of the accuracy or completeness of information in this document.
== END | disposition home or self-care (01) ==
LOC: BIMLAB 13:57
PROVIDERS: Referring Provider Family Medicine; Visit Provider Family Medicine
DX: I10 Essential (primary) hypertension (principal)
CPT/HCPCS: 36415; 80053; 85025

== ENCOUNTER → 2025-02-26 | Outpatient (CLI) | payer MEDICAID, SELFPAY ==
--- OUTSIDE RECORDS SUMMARY | 2025-02-26 11:42 | XMS RPT_ITS | CCD ---
Author Organization [facility] [employer] Care Team Providers Care Online Marketing Strategist Name Role Phone VOLL, STEPHANIE DO Unavailable Unavailable VOLL, STEPHANIE DO Unavailable Unavailable JEANE TORO CNP Unavailable Unavailable VOLL, STEPHANIE DO Unavailable Unavailable JEANE TORO CNP Unavailable Unavailable PROVIDER, UNKNOWN Unavailable Unavailable PROVIDER, UNKNOWN Unavailable Unavailable JEANE TORO CNP Unavailable Unavailable JEANE TORO CNP Unavailable Unavailable JEANE TORO CNP Unavailable Unavailable JEANE TORO CNP Unavailable Unavailable PROVIDER, UNKNOWN Unavailable Unavailable PROVIDER, UNKNOWN Unavailable Unavailable JEANE TORO CNP Admitting Unavailable JEANE TORO CNP Attending Unavailable JEANE TORO CNP Consulting Unavailable JEANE TORO CNP Primary Care Unavailable PROVIDER, UNKNOWN Consulting Unavailable PROVIDER, UNKNOWN Consulting Unavailable Dr. Cortez Lynch DO Attending Physician Dr. Cortez Lynch DO Referring Provider Cortez Lynch Attending Unavailable Cortez Lynch Referring Unavailable Cortez Lynch Attending Unavailable Cortez Lynch Primary Care Unavailable Cortez Lynch Referring Unavailable Cortez Lynch Attending Unavailable Medications Current Medications Medication Drug Class(es) Dates Sig (Normalized) Sig (Original) ascorbic acid 100 mg oral tablet (2 sources) Vitamin C Start: 12-27-2023 take 1 tablet by mouth once daily calcium citrate 950 mg oral tablet (2 sources) Start: 12-27-2023 take 1 tablet by mouth once daily hydroCHLOROthiazide 12.5 mg oral capsule (2 sources) Thiazide Diuretic Start: 01-29-2025 take 1 capsule by mouth once daily in the morning Vitamin B Complex tablet (2 sources) Start: 01-29-2025 Completed/Discontinued Medications Medication Drug Class(es) Dates Sig (Normalized) Sig (Original) Cornish 7-Nbj-Uox-Fish Oil (2 sources) Start: 12-27-2023 End: 01-29-2025 Cornish 2-Bvk-Nfc-Fish Oil (Fish Oil) 300-1,000 mg capsule Discontinued 1 NMA PO DAILY December 27, 2023 12:00am January 29, 2025 1:26pm ferrous sulfate 325 mg oral tablet (2 sources) Start: 12-27-2023 End: 01-29-2025 take 1 tablet by mouth once daily Ferrous Sulfate (Feosol) 325 mg (65 mg iron) tablet Discontinued 325 mg PO DAILY December 27, 2023 12:00am January 29, 2025 1:25pm lisinopril 20 mg oral tablet (10 sources) Angiotensin Converting Enzyme Inhibitor Start: 12-27-2023 End: 01-22-2025 take 1 tablet by mouth once daily Lisinopril 20 mg tablet Discontinued 20 mg PO DAILY 90 August 08, 2024 8:22am January 22, 2025 8:25am Problems Active Problems Problem Classification Problem Date Documented Da te Episodic/Chronic Disorders of teeth and jaw (4 sources) Tooth disorder; Translations: [Disorder of teeth and supporting structures, unspecified] 01-29-2025 Episodic Essential hypertension (5 sources) Hypertensive disorder; Translations: [Essential (primary) hypertension] Onset: 02-04-2025 12-27-2023 Chronic Other nutritional; endocrine; and metabolic disorders (3 sources) Overweight; Translations: [Overweight] Onset: 02-16-2022 Episodic Other screening for suspected conditions (not mental disorders or infectious disease) (3 sources) Encounter for screening for lipoid disorders; Translations: [Encounter for screening for diseases of the blood and blood-forming organs and certain disorders involving the immune mechanism] Onset: 02-16-2022 Episodic Residual codes; unclassified (4 sources) Menopause present; Translations: [Asymptomatic menopausal state] 01-29-2025 Episodic Past or Other Problems Problem Classification Problem Date Documented Da te Episodic/Chronic Medical examination/evaluation (1 source) Encounter for general adult medical examination with abnormal findings; Translations: [Encounter for general adult medical examination with abnormal findings] Onset: 07-04-2017 Episodic Results Test Name Value Interpretation Reference Range Facility Absolute lymphocyte countOrd ered By: Cortez Lynch on 01-29-2025 Lymphocytes Auto (Unsp spec) [#/Vol] 2.22 10*3/uL 0.83-4.51 [facility] Absolute neutrophil countOrd ered By: Cortez Lynch on 01-29-2025 Neutrophils (Bld) [#/Vol] 4.8 10*3/uL 2.0-7.7 [facility] Anion gap in Serum or Plasma Ordered By: Cortez Lynch on 01-29-2025 Anion gap [Moles/Vol] 12 mmol/L 5- [facility] Automated lymphocyte count a s percentage of total leukocytesOrdered By: Cortez Lynch on 01-29-2025 Lymphocytes/100 WBC Auto (Unsp spec) 28.6 % - [facility] BUN/creatinine ratioOrdered By: Cortez Lynch on 01-29-2025 Urea nitrogen/Creatinine [Mass ratio] 30.4 mg/mg High 10- [facility] Basophil percentageOrdered B y: Cortez Lynch on 01-29-2025 Basophils/100 WBC (Bld) 0.5 % 0-1 [facility] Bilirubin, totalOrdered By: Cortez Lynch on 01-29-2025 Bilirubin [Mass/Vol] 0.42 mg/dL 0.00-1.30 [facility] CBC W/Diff, Automatedon 01-08 Absolute Lymph 2.22 X10 3/uL Normal 0.83-4.51 [facility] Comment on above: Performed By: #### L 500.4050, L100.0100 #### [facility] [address] [place], [address] Absolute Neut 4.8 X10 3/uL Normal 2.0-7.7 [facility] Comment on above: Performed By: #### L 500.4050, L100.0100 #### [facility] [address] [place], [address] Basophils/100 WBC (Bld) 0.5 % Normal 0-1 [facility] Comment on above: Performed By: #### L 500.4050, L100.0100 #### [facility] [address] [place], [address] Eosinophils/100 WBC (Bld) 1.3 % Normal 0-5 [facility] Comment on above: Performed By: #### L 500.4050, L100.0100 #### [facility] [address] [place], [address] Erythrocyte distribution width (RBC) [Ratio] 12.0 % Normal 11.6-14.6 [facility] Comment on above: Performed By: #### L 500.4050, L100.0100 #### [facility] [address] [place], [address] Hematocrit (Bld) [Volume fraction] 41.0 % Normal 37-47 [facility] Comment on above: Performed By: #### L 500.4050, L100.0100 #### [facility] [address] [place], [address] Hemoglobin (Bld) [Mass/Vol] 13.8 g/dL Normal 12.0-15.0 [facility] Comment on above: Performed By: #### L 500.4050, L100.0100 #### [facility] [address] [place], [address] IG% 0.300 Normal 0.0-0.9 [facility] Comment on above: Result Comment: IG% - Immature Granulocytes (promyelocytes, myelocytes and metamyelocytes) > 1% indicates that a LEFT SHIFT is Present. Performed By: #### L 500.4050, L100.0100 #### [facility] [address] [place], [address] Lymphocytes/100 WBC (Bld) 28.6 % Normal 19-41 [facility] Comment on above: Performed By: #### L 500.4050, L100.0100 #### [facility] [address] [place], [address] MCH (RBC) [Entitic mass] 32.1 pg High 27.0-32.0 [facility] Comment on above: Performed By: #### L 500.4050, L100.0100 #### [facility] [address] [place], [address] MCHC (RBC) [Mass/Vol] 33.7 g/dL Normal 32-36 [facility] Comment on above: Performed By: #### L 500.4050, L100.0100 #### [facility] [address] [place], [address] MCV (RBC) [Entitic vol] 95.3 fL Normal 81-99 [facility] Comment on above: Performed By: #### L 500.4050, L100.0100 #### [facility] [address] [place], [address] Monocytes/100 WBC (Bld) 7.1 % Normal 0-10 [facility] Comment on above: Performed By: #### L 500.4050, L100.0100 #### [facility] [address] [place], [address] Neutrophils/100 WBC (Bld) 62.2 % Normal 47-70 [facility] Comment on above: Performed By: #### L 500.4050, L100.0100 #### [facility] [address] [place], [address] Nucleated RBC (Bld) [#/Vol] 0 10*3/uL Normal 0-5 [facility] Comment on above: Performed By: #### L 500.4050, L100.0100 #### [facility] [address] [place], [address] Platelet mean volume (Bld) [Entitic vol] 10.9 fL Normal 6.2-12.0 [facility] Comment on above: Performed By: #### L 500.4050, L100.0100 #### [facility] [address] [place], [address] Platelets (Bld) [#/Vol] 241 10*3/uL Normal 150-450 [facility] Comment on above: Performed By: #### L 500.4050, L100.0100 #### [facility] [address] [place], [address] RBC (Bld) [#/Vol] 4.30 10*6/uL Normal 4.2-5.4 [facility] Comment on above: Performed By: #### L 500.4050, L100.0100 #### [facility] [address] [place], [address] RDW SD 42.4 fl Normal 35.1-43.9 [facility] Comment on above: Performed By: #### L 500.4050, L100.0100 #### [facility] [address] [place], [address] WBC (Bld) [#/Vol] 7.8 10*3/uL Normal 4.4-11.0 [facility] Comment on above: Performed By: #### L 500.4050, L100.0100 #### [facility] [address] [place], [address] Carbon dioxide, total [Moles /volume] in Central venous bloodOrdered By: Cortez Lynch on 01-29-2025 CO2 [Moles/Vol] 24.0 mmol/L 21.0-32.0 [facility] Chloride assayOrdered By: Do liam Lynch on 01-29-2025 Chloride [Moles/Vol] 106 mmol/L 98-108 [facility] Comprehensive Metabolic Prof ilon 01-29-2025 Albumin [Mass/Vol] 4.6 g/dL Normal 3.5-5.0 [facility] Comment on above: Performed By: #### L 500.4050, L100.0100 #### [facility] [address] [place], [address] Albumin/Globulin [Mass ratio] 1.5 {ratio} Normal 0.9-2.4 [facility] Comment on above: Performed By: #### L 500.4050, L100.0100 #### [facility] [address] [place], [address] ALK PHOS 62 U/L Normal 35-104 [facility] Comment on above: Performed By: #### L 500.4050, L100.0100 #### [facility] [address] [place], [address] ALT [Catalytic activity/Vol] 19 U/L Normal <=34 [facility] Comment on above: Performed By: #### L 500.4050, L100.0100 #### [facility] [address] [place], [address] AST [Catalytic activity/Vol] 23 U/L Normal <=31 [facility] Comment on above: Performed By: #### L 500.4050, L100.0100 #### [facility] [address] [place], [address] Bilirubin [Mass/Vol] 0.42 mg/dL Normal 0.00-1.30 [facility] Comment on above: Performed By: #### L 500.4050, L100.0100 #### [facility] [address] [place], [address] BUN/CRE 30.4 RATIO High 10-20 [facility] Comment on above: Performed By: #### L 500.4050, L100.0100 #### [facility] [address] [place], [address] Calcium [Mass/Vol] 9.4 mg/dL Normal 7.6-11.0 [facility] Comment on above: Performed By: #### L 500.4050, L100.0100 #### [facility] [address] [place], [address] Chloride [Moles/Vol] 106 mmol/L Normal 98-108 [facility] Comment on above: Performed By: #### L 500.4050, L100.0100 #### [facility] [address] [place], [address] CO2 [Moles/Vol] 24.0 mmol/L Normal 21.0-32.0 [facility] Comment on above: Performed By: #### L 500.4050, L100.0100 #### [facility] [address] [place], [address] Creatinine [Mass/Vol] 0.72 mg/dL Normal 0.70-1.20 [facility] Comment on above: Performed By: #### L 500.4050, L100.0100 #### [facility] [address] [place], [address] GAP 12 Normal 5-15 [facility] Comment on above: Performed By: #### L 500.4050, L100.0100 #### [facility] [address] [place], [address] GFR/1.73 sq M.predicted among non-blacks MDRD (S/P/Bld) [Vol rate/Area] 102 mL/min/{1.73_m2} Normal >60 [facility] Comment on above: Result Comment: mL/m in/1.73m2 CKD-EPI Creatinine Equation (2020) Performed By: #### L 500.4050, L100.0100 #### [facility] [address] [place], [address] Globulin (S) [Mass/Vol] 3.0 g/dL Normal 2.2-4.2 [facility] Comment on above: Performed By: #### L 500.4050, L100.0100 #### [facility] [address] [place], [address] Glucose [Mass/Vol] 89 mg/dL Normal 70-99 [facility] Comment on above: Performed By: #### L 500.4050, L100.0100 #### [facility] [address] [place], [address] Potassium [Moles/Vol] 4.3 mmol/L Normal 3.3-5.1 [facility] Comment on above: Performed By: #### L 500.4050, L100.0100 #### [facility] [address] [place], [address] Sodium [Moles/Vol] 142 mmol/L Normal 133-145 [facility] Comment on above: Performed By: #### L 500.4050, L100.0100 #### [facility] [address] [place], [address] T PROT 7.6 g/dL Normal 5.9-8.4 [facility] Comment on above: Performed By: #### L 500.4050, L100.0100 #### [facility] [address] [place], [address] Urea nitrogen [Mass/Vol] 22 mg/dL High 4-19 [facility] Comment on above: Performed By: #### L 500.4050, L100.0100 #### [facility] [address] [place], [address] Eosinophil percentageOrdered By: Cortez Brown on 01-29-2025 Eosinophils/100 WBC (Bld) 1.3 % 0-5 [facility] Erythrocyte distribution wid th ratioOrdered By: Cortez Brown on 01-29-2025 Erythrocyte distribution width (RBC) [Ratio] 12.0 % 11.6-14.6 [facility] Erythrocyte distribution wid th standard deviationOrdered By: Cortez Brown on 01-29-2025 Erythrocyte distribution width (RBC) [Ratio] 42.4 fl 35.1-43.9 [facility] Glomerular filtration rate ( GFR) estimation/1.73 sq m using serum, plasma, or whole bOrdered By: Cortez Lynch on 01-29-2025 GFR/1.73 sq M.predicted among non-blacks MDRD (S/P/Bld) [Vol rate/Area] 102 mL/min/{1.73_m2} >60 [facility] Comment on above: mL/min/1.73m2 CKD-EP I Creatinine Equation (2020) Hematocrit Auto (Bld) [Volum e fraction]Ordered By: Cortez Lynch on 01-29-2025 Hematocrit (Bld) [Volume fraction] 41.0 % 37-47 [facility] Hemoglobin measurementOrdere d By: Cortez Lynch on 01-29-2025 Hemoglobin (Bld) [Mass/Vol] 13.8 g/dL 12.0-15.0 [facility] Immature granulocytes/100 WB C Auto (Bld)Ordered By: Cortez Lynch on 01-29-2025 Immature granulocytes/100 WBC (Bld) 0.300 % 0.0-0.9 [facility] Comment on above: IG% - Immature Granu locytes (promyelocytes, myelocytes and metamyelocytes) > 1% indicates that a LEFT SHIFT is Present. Internal Medicine Office Vis iton 01-29-2025 Internal Medicine Office Visit [facility] Internal Medicine [address] [place] [address] [place] [address] OFFICE VISIT Date of Service: 01/29/25 MR#: [id number] Acct: [id number] Name: EPIFANIO STOKES Rep #: [id number] : 1975 Provider: Dr. Cortez henderson, DO Age/Sex: 49/F Location: [facility] Status: Signed Intake Vital Signs 12/27/23 11:21 01/29/25 13:31 Height 4 ft 10 in 4 ft 10 in Weight: 135 lb BMI 28.2 BP 132/82 H Blood Pressure Location Lt brachial Position Sitting Respiration 16 Pulse 84 Pulse Source Monitor Temp 97.5 F L Temp Source Temporal Pulse Oximetry (%) 98 Oxygen Delivery Method room air Intake Visit Reasons: YEARLY Chief Complaint: Blood pressure elevated in the morning. Child Adolescent Care Required: No Is patient in pain?: No Allergies No Known Allergies Allergy (Unverified 01/29/25 13:25) Medications ???Medication ???Instructions ???Recorded ???Confirmed ???Type ascorbic acid (vitamin C) 100 mg 100 mg PO DAILY 12/27/23 01/29/25 History tablet calcium citrate 200 mg PO DAILY 12/27/23 01/29/25 History lisinopril 20 mg tablet 20 mg PO DAILY #90 TABLETS 5 01/29/25 Rx hydrochlorothiazide 12.5 mg capsule 12.5 mg PO QAM #90 caps 5 01/29/25 Rx vitamin B complex 1 tab PO QDAY 01/29/25 01/29/25 Ca story Nurse's Note: pt needs a refill. Pt wnder if she needs an increase in lisinopril due to some higher readings. Pt will get covid and flu shot together Pt states she has never had a mammogram Pt is not fasting for labs had cffee w/ cream and sugar a little after 9pm Pt never had colonoscopy [facility] Medical History (Updated 01/29/25 @ 14:[address] 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 Details: EPIFANIO STOKES, is a 49 F who presents to the office today for concerns that her blood pressure is elevated in the morning. She says frequently it is at 140 systolic and says it goes down after she takes her medicine but that is not terribly logical because of a slow onset of action of lisinopril. 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 She denies having had a mammogram since her last child. She appears to take very good care of her self, but she has a lot of responsibilities for her family and her parents and the stress is quite high. ROS Const Constitutional: No body ache, chills, [...] constipation, cramping, diarrhea, nausea/dyspepsia or vomiting Genitourinary-Female: No burning urination, painful urination, urinary incontinence, [...] eyes, seasonal allergy symptoms, hives or wheezing Roberto (more content not included)... Normal [facility] Laboratory - Chemistry and C hemistry - challengeOrdered By: Cortez Lynch on 01-29-2025 AST [Catalytic activity/Vol] 23 U/L <32 [facility] MCV (mean corpuscular volume ) determinationOrdered By: Cortez Lynch on 01-29-2025 MCV (RBC) [Entitic vol] 95.3 fL 81-99 [facility] Mean corpuscular hemoglobin (MCH) determinationOrdered By: Cortez Lynch on 01-29-2025 MCH (RBC) [Entitic mass] 32.1 pg High 27.0-32.0 [facility] Mean corpuscular hemoglobin concentration (MCHC) determinationOrdered By: Cortez Lynch on 01-29-2025 MCHC (RBC) [Mass/Vol] 33.7 g/dL 32-36 [facility] Mean platelet volume determi nationOrdered By: Cortez Lynch on 01-29-2025 Platelet mean volume (Bld) [Entitic vol] 10.9 fL 6.2-12.0 [facility] Monocyte percentageOrdered B y: Cortez Lynch on 01-29-2025 Monocytes/100 WBC (Bld) 7.1 % 0-10 [facility] Neutrophil percentageOrdered By: Cortez Lynch on 01-29-2025 Neutrophils/100 WBC (Bld) 62.2 % 47-70 [facility] Nucleated red blood cell per centageOrdered By: Cortez Lynch on 01-29-2025 Nucleated RBC/100 WBC (Bld) [Ratio] 0 % 0-5 [facility] Platelet countOrdered By: Do liam Lynch on 01-29-2025 Platelets (Bld) [#/Vol] 241 10*3/uL 150-450 [facility] Potassium measurement (mass/ volume)Ordered By: Cortez Lynch on 01-29-2025 Potassium (Unsp spec) [Mass/Vol] 4.3 mmol/L 3.3-5.1 [facility] RBC Auto (Bld) [#/Vol]Ordere d By: Cortez Lynch on 01-29-2025 RBC (Bld) [#/Vol] 4.30 10*6/uL 4.2-5.4 [facility] Serum creatinine measurement (mass/volume)Ordered By: Cortez Lynch on 01-29-2025 Creatinine [Mass/Vol] 0.72 mg/dL 0.70-1.20 [facility] Serum globulin measurementOr dered By: Cortez Lynch on 01-29-2025 Globulin (S) [Mass/Vol] 3.0 g/dL 2.2-4.2 [facility] Serum glucose measurement (m ass/volume)Ordered By: Cortez Lynch on 01-29-2025 Glucose [Mass/Vol] 89 mg/dL 70-99 [facility] Serum or plasma alanine forrester otransferase (ALT) measurementOrdered By: Cortez Lynch on 01-29-2025 ALT [Catalytic activity/Vol] 19 U/L <35 [facility] Serum or plasma albumin saul urement (mass/volume)Ordered By: Cortez Lynch on 01-29-2025 Albumin [Mass/Vol] 4.6 g/dL 3.5-5.0 [facility] Serum or plasma albumin/glob ulin mass ratioOrdered By: Cortez Lynch on 01-29-2025 Albumin/Globulin [Mass ratio] 1.5 {ratio} 0.9-2.4 [facility] Serum or plasma alkaline margarita sphatase measurementOrdered By: Cortez Lynch on 01-29-2025 ALP [Catalytic activity/Vol] 62 U/L 35-104 [facility] Serum or plasma calcium saul urement (mass/volume)Ordered By: Cortez Lynch on 01-29-2025 Calcium [Mass/Vol] 9.4 mg/dL 7.6-11.0 [facility] Serum or plasma urea nitroge n measurement (mass/volume)Ordered By: Cortez Lynch on 01-29-2025 Urea nitrogen [Mass/Vol] 22 mg/dL High 4-19 [facility] Sodium levelOrdered By: Kristopher Lynch on 01-29-2025 Sodium [Moles/Vol] 142 mmol/L 133-145 [facility] Total proteinOrdered By: Ag Lynch on 01-29-2025 Protein [Mass/Vol] 7.6 g/dL 5.9-8.4 [facility] White blood cell (WBC) count Ordered By: Cortez Lynch on 01-29-2025 WBC (Bld) [#/Vol] 7.8 10*3/uL 4.4-11.0 [facility] CBC + DIFFon 02-16-2022 Baso # 0.00 x10EE3/UL Normal 0.00 - 0.10 [facility] Comment on above: Performed By: #### [id number] #### [facility],[address] [place] [id number] Basophils/100 WBC (Bld) 0.8 % Normal 0.0 - 2.0 [facility] Comment on above: Performed By: #### [id number] #### [facility],[address] [place] [address] CBC + DIFF Normal [facility] Comment on above: Result Comment: CBC- COMPLETE BLOOD COUNT Performed By: #### 2 05218 #### [facility],[address] [place] [address] EO # 0.10 x10EE3/UL Normal 0.00 - 0.50 [facility] Comment on above: Performed By: #### 2 60977 #### [address] [address] Eosinophils/100 WBC (Bld) 1.0 % Normal 0.0 - 7.0 [facility] Comment on above: Performed By: #### 2 90099 #### [facility],[address] [place] [address] Erythrocyte distribution width (RBC) [Ratio] 16.4 % High 12.0 - 15.6 [facility] Comment on above: Performed By: #### 2 57639 #### [facility],[address] [place] [address] Hematocrit (Bld) [Volume fraction] 30.8 % Low 34.0 - 46.0 [facility] Comment on above: Performed By: #### 2 93936 #### [facility],[address] [place], [place] [id number] Hemoglobin (Bld) [Mass/Vol] 9.6 g/dL Low 12.0 - 16.0 [facility] Comment on above: Performed By: #### 2 91517 #### [facility],[address] [place], [place] [address] Lymph # 1.70 x10EE3/UL Normal 0.80 - 2.80 [facility] Comment on above: Performed By: #### 2 12368 #### [facility],[address] [place], [place] [address] Lymphocytes/100 WBC (Bld) 32.3 % Normal 20.0 - 45.0 [facility] Comment on above: Performed By: #### 2 61715 #### [facility],[address] [place], [place] [address] MANUAL DIFF N/A Normal [facility] Comment on above: Performed By: #### 2 89463 #### [facility],[address] [place] [address] MCH (RBC) [Entitic mass] 26 pg Low 27 - 33 [facility] Comment on above: Performed By: #### 2 35971 #### [facility],[address] [place] [address] MCHC 31 X10 3 Low 32 - 36 [facility] Comment on above: Performed By: #### 2 40234 #### [facility],[address] [place], [place] [address] MCV (RBC) [Entitic vol] 84 fL Normal 80 - 99 [facility] Comment on above: Performed By: #### 2 38422 #### [facility],[address] [place], [place] [address] [place]on # 0.40 x10EE3/UL Normal 0.20 - 1.00 [facility] Comment on above: Performed By: #### 2 48920 #### [facility],[address] [place] [address] MONOS % 7.1 % Normal 0.0 - 10.0 [facility] Comment on above: Performed By: #### 2 95954 #### [facility],[address] [place] [address] Morphology Tripp (Bld) [Interp] N/A Normal [facility] Comment on above: Result Comment: {CD] Performed By: #### 2 87374 #### [facility],[address] [place] [address] Neut # 3.10 x10EE3/UL Normal 1.50 - 7.10 [facility] Comment on above: Performed By: #### 2 17104 #### [facility],[address] [place] [address] Neutrophils/100 WBC (Bld) 58.8 % Normal 46.0 - 76.0 [facility] Comment on above: Performed By: #### 2 86505 #### [facility],[address] [place] [address] PLATELET 333 x10EE3/UL Normal 150 - 450 [facility] Comment on above: Performed By: #### 2 82237 #### [place] [address] Platelet mean volume (Bld) [Entitic vol] 8.6 fL Normal 6.6 - 10.5 [facility] Comment on above: Result Comment: AUTO MATED DIFFERENTIAL Performed By: #### 2 19139 #### [facility],[address] [place] [address] RBC 3.66 x 10EE6/UL Low 4.10 - 5.30 [facility] Comment on above: Performed By: #### 2 52582 #### [facility],[address] [place], [place] [address] WBC 5.3 x 10EE3/UL Normal 4.5 - 10.8 [facility] Comment on above: Performed By: #### 2 37345 #### [address] [address] CMP with eGFRon 02-16-2022 AGE 46 years Normal [facility] Comment on above: Performed By: #### 2 43317 #### [place] [id number] Albumin [Mass/Vol] 3.6 g/dL Normal 3.4 - 5.0 [facility] Comment on above: Performed By: #### 2 28848 #### [facility],[address] [place] [address] Albumin/Globulin [Mass ratio] 1.0 {ratio} Normal 0.9 - 1.6 [facility] Comment on above: Performed By: #### 2 84414 #### [facility],[address] [place] [address] ALK PHOS 50 U/L Normal 46 - 116 [facility] Comment on above: Performed By: #### 2 54424 #### [facility],[address] [place] [address] ALT [Catalytic activity/Vol] 23 U/L Normal 14 - 59 [facility] Comment on above: Performed By: #### 2 02841 #### [facility],[address] [place] [address] Anion gap [Moles/Vol] 12 mmol/L Normal 10 - 20 [facility] Comment on above: Performed By: #### 2 73403 #### [facility],[address] [place] [address] AST [Catalytic activity/Vol] 17 U/L Normal 13 - 39 [facility] Comment on above: Performed By: #### 2 67863 #### [facility],[address] [place] [address]17 B/C RATIO 24 ratio Normal 0 - 30 [facility] Comment on above: Performed By: #### 2 43479 #### [facility],[address] [place] [address]289 Bilirubin [Mass/Vol] 0.5 mg/dL Normal 0.2 - 1.0 [facility] Comment on above: Performed By: #### 2 45290 #### [facility],[address] [place] [address] Calcium [Mass/Vol] 7.8 mg/dL Low 8.5 - 10.1 [facility] Comment on above: Performed By: #### 2 23840 #### [facility],[address] [place], [place] [address] Chloride [Moles/Vol] 106 mmol/L Normal 98 - 107 [facility] Comment on above: Performed By: #### 2 20029 #### [facility],[address] [place], [place] [id number] CMP with eGFR Normal [facility] Comment on above: Result Comment: COMP REHENSIVE METABOLIC PANEL Performed By: #### 2 08616 #### [facility],[address] [place] [address] CO2 [Moles/Vol] 27.7 mmol/L Normal 21.0 - 32.0 [facility] Comment on above: Performed By: #### 2 32529 #### [facility],[address] [place], [place] [address] Creatinine [Mass/Vol] 0.72 mg/dL Normal 0.55 - 1.02 [facility] Comment on above: Performed By: #### 2 72576 #### [facility],[address] [place], [place] [address] GFR/1.73 sq M.predicted among non-blacks MDRD (S/P/Bld) [Vol rate/Area] mL/min/{1.73_m2} Normal 60 - 999 [facility] Comment on above: Performed By: #### 2 94719 #### [facility],[address] [place] [address] Result Comment: ACCO RDING TO THE NATIONAL KIDNEY DISEASE EDUCATION PROGRAM(NKDE), A NORMAL eGFR IS A VALUE GREATER THAN OR EQUAL TO 60 ML/MIN/1.73 SQ METERS. CHRONIC KIDNEY DISEASE: <60mL/MIN/1.73 SQ METERS KIDNEY FAILURE: <15mL/MIN/1.73 SQ METERS THIS TEST SHOULD ONLY BE USED FOR PATIENTS 18 YEARS OF AGE AND OLDER. Globulin (S) [Mass/Vol] 3.6 g/dL Normal 1.5 - 3.8 [facility] Comment on above: Performed By: #### 2 00083 #### [facility],[address] [place] [address] Glucose [Mass/Vol] 74 mg/dL Normal 74 - 106 [facility] Comment on above: Performed By: #### 2 71378 #### [facility],[address] [place] [address] Potassium [Moles/Vol] 3.9 mmol/L Normal 3.5 - 5.1 [facility] Comment on above: Performed By: #### 2 92334 #### [facility],[address] [place] [address] Protein [Mass/Vol] 7.2 g/dL Normal 6.4 - 8.2 [facility] Comment on above: Performed By: #### 2 70767 #### [facility],[address] [place] [address] Sodium [Moles/Vol] 142 mmol/L Normal 136 - 145 [facility] Comment on above: Performed By: #### 2 22035 #### [facility],[address] [place] [address] Urea nitrogen [Mass/Vol] 17 mg/dL Normal 7 - 18 [facility] Comment on above: Performed By: #### 2 42311 #### [facility],[address] [place] [address] LIPID PROFILEon 02-16-2022 Cholesterol [Mass/Vol] 163 mg/dL Normal 0 - 240 [facility] Comment on above: Performed By: #### 2 50899 #### [facility],[address] [place] [address] Cholesterol in HDL [Mass/Vol] 64 mg/dL High 40 - 60 [facility] Comment on above: Performed By: #### 2 78838 #### [facility],[address] [place] [address] Cholesterol in LDL [Mass/Vol] 83 mg/dL Normal 0 - 129 [facility] Comment on above: Performed By: #### 2 26523 #### [facility],[address] [place] [address]65[address] Cholesterol.total/Choles terol in HDL [Mass ratio] 2.5 {ratio} Normal 0.0 - 5.0 [facility] Comment on above: Performed By: #### 2 41736 #### [facility],[address] [place] [address] Lipid 1996 panel Normal [facility] Comment on above: Result Comment: LIPI D PROFILE Performed By: #### 2 65147 #### [facility],[address] [place] [address] Triglyceride [Mass/Vol] 82 mg/dL Normal 0 - 150 [facility] Comment on above: Performed By: #### 2 04862 #### [facility],[address] [place] [address] CHLAMYDIA & GC RNA TMA [QUES T]on 07-05-2017 CHLAMYDIA & GC RNA TMA [QUEST] Normal [facility] Comment on above: Result Comment: _CHL AMYDIA/NEISSERIA GONORRHOEAE RNA,TMA_CHLAMYDIA TRACHOMATIS/NEISSERIA GONORRHOEAE TMAReported: 07/05/2017 17:54 Status=F TEST RESULT FLAG RANGE UNITS C. TRACHOMATIS RNA, TMA Not Detected Not Detected 07/05/17.rfl.COMPLETE.AMRR .[id number]. GONORRHOEAE RNA, TMA Not Detected Not Detected 07/05/17.rfl.COMPLETE.AMRR .[id number] test was performed using the APTIMA COMBO2(R)Assay (GEN-PROBE(R)).The analytical performance characteristics of thisassay, when used to test SurePath(R) specimens havebeen determined by [employer].Test Performed by [facility],[address] [place] [address] [id number] Costello M.D., Ph.D., Director of [phone], CLIA [id number] Performed By: #### 2 38860 ####[place] [address] CBCon 07-04-2017 Basophils Auto #/vol (Bld) 0.00 x10EE3/UL Normal 0.00 - 0.10 [facility] Comment on above: Performed By: #### 2 82909 ####[place] [address] Basophils/100 WBC Auto (Bld) 0.4 % Normal 0.0 - 2.0 [facility] Comment on above: Performed By: #### 2 53885 ####[place] [address] Blood morphology N/A Normal [facility] Comment on above: Result Comment: {CD] Performed By: #### 2 07894 ####[place] [address] CBC Normal [facility] Comment on above: Result Comment: CBC- COMPLETE BLOOD COUNT Performed By: #### 2 13043 ####[place] [address] Eosinophils 0.10 x10EE3/UL Normal 0.00 - 0.50 [facility] Comment on above: Performed By: #### 2 44593 ####[facility],[address] [place], [place] [address] Eosinophils/100 leukocytes 1.1 % Normal 0.0 - 7.0 [facility] Comment on above: Performed By: #### 2 43371 ####[facility],[address] [place] [address] Erythrocyte distribution width Auto Ratio (RBC) 15.9 % High 12.0 - 15.6 [facility] Comment on above: Performed By: #### 2 72746 ####[facility],[address] [place] [address] Erythrocytes (RBC) 4.03 x 10EE6/UL Low 4.10 - 5.30 [facility] Comment on above: Performed By: #### 2 18163 ####[facility],[address] [place], [place] [address] Hematocrit (HCT) 35.1 % Normal 34.0 - 46.0 [facility] Comment on above: Performed By: #### 2 42253 ####[facility],[address] [place] [address] Hemoglobin mass conc (Bld) 11.5 g/dL Low 12.0 - 16.0 [facility] Comment on above: Performed By: #### 2 00242 ####[facility],[address] [place], [place] [address] Lymphocytes 2.20 x10EE3/UL Normal 0.80 - 2.80 [facility] Comment on above: Performed By: #### 2 42760 ####[facility],[address] [place] [address] Lymphocytes/100 leukocytes 31.1 % Normal 20.0 - 45.0 [facility] Comment on above: Performed By: #### 2 82951 ####[facility],[address] [place] [address] MANUAL DIFF N/A Normal [facility] Comment on above: Performed By: #### 2 77001 ####[facility],[address] [place] [address] MCH 29 pg Normal 27 - 33 [facility] Comment on above: Performed By: #### 2 94454 ####[facility],[address] [place] [address] MCHC mass conc (RBC) 33 X10 3 Normal 32 - 36 [facility] Comment on above: Performed By: #### 2 66651 ####[facility],[address] [place] [address] MCV 87 fL Normal 80 - 99 [facility] Comment on above: Performed By: #### 2 54481 ####[facility],[address] [place] [address] Monocytes 0.60 x10EE3/UL Normal 0.20 - 1.00 [facility] Comment on above: Performed By: #### 2 21487 ####[facility],[address] [place] [address] MONOS % 8.1 % Normal 0.0 - 10.0 [facility] Comment on above: Performed By: #### 2 76560 ####[facility],[address] [place] [address] Neutrophils 4.30 x10EE3/UL Normal 1.50 - 7.10 [facility] Comment on above: Performed By: #### 2 43170 ####[place] [address] Neutrophils/100 WBC Auto (Bld) 59.3 % Normal 46.0 - 76.0 [facility] Comment on above: Performed By: #### 2 74068 ####[facility],[address] [place] [address] Platelet mean volume (PMV) 8.6 fL Normal 6.6 - 10.5 [facility] Comment on above: Result Comment: AUTO MATED DIFFERENTIAL Performed By: #### 2 62147 ####[facility],[address] [place] [address]18 Platelets 243 x10EE3/UL Normal 150 - 450 [facility] Comment on above: Performed By: #### 2 05565 ####[facility],[address] [place] [address] WBC (Leukocytes) 7.2 x 10EE3/UL Normal 4.5 - 10.8 [facility] Comment on above: Performed By: #### 2 68578 ####[facility],[address] [place] [address] CMP with eGFRon 07-04-2017 Age 42 years Normal [facility] Comment on above: Performed By: #### 2 83996 ####[facility],[address] [place] [address] Albumin 4.3 g/dL Normal 3.4 - 4.8 [facility] Comment on above: Performed By: #### 2 86549 ####[facility],[address] [place], [place] [address] Albumin/Globulin Ratio 1.5 {ratio} Normal 0.9 - 1.6 [facility] Comment on above: Performed By: #### 2 33600 ####[facility],[address] [place] [address] 09833 ALK PHOS 36 U/L Low 38 - 126 [facility] Comment on above: Performed By: #### 2 54672 ####[facility],[address] [place] [address] 27711 ALT/SGPT 13 U/L Normal 8 - 35 [facility] Comment on above: Performed By: #### 2 87378 ####[facility],[address] [place] [address] Anion gap 10 mmol/L Normal 10 - 20 [facility] Comment on above: Performed By: #### 2 12582 ####[facility],[address] [place] [address] 46775 AST/SGOT 15 U/L Normal 13 - 39 [facility] Comment on above: Performed By: #### 2 23559 ####[facility],[address] [place] [address] 03608 B/C RATIO 24 ratio Normal 0 - 30 [facility] Comment on above: Performed By: #### 2 11376 ####[facility],[address] [place] [address] 34410 Bilirubin (total) 0.4 mg/dL Normal 0.0 - 1.5 [facility] Comment on above: Performed By: #### 2 67710 ####[facility],[address] [place] [address] 77922 Calcium 8.7 mg/dL Normal 8.6 - 10.2 [facility] Comment on above: Performed By: #### 2 57004 ####[facility],[address] [place] [address] 52049 Chloride 105 mmol/L Normal 98 - 107 [facility] Comment on above: Performed By: #### 2 44935 ####[facility],[address] [place] [address] 33506 CO2 28.5 mmol/L Normal 21.0 - 31.0 [facility] Comment on above: Performed By: #### 2 88123 ####[facility],[address] [place] [address] 54721 Creatinine 0.7 mg/dL Normal 0.6 - 1.2 [facility] Comment on above: Performed By: #### 2 85382 ####[facility],[address] [place] [address] 78097 eGFR (non-black) Normal [facility] Comment on above: Result Comment: COMP REHENSIVE METABOLIC PANEL Performed By: #### 2 62996 ####[address] [address] eGFR (non-black) mL/min/{1.73_m2} Normal 60 - 999 [facility] Comment on above: Result Comment: ACCO RDING TO THE NATIONAL KIDNEY DISEASE EDUCATION PROGRAM(NKDE), A NORMAL eGFRIS A VALUE GREATER THAN OR EQUAL TO 60 ML/MIN/1.73 SQ METERS.CHRONIC KIDNEY DISEASE: <60mL/MIN/1.73 SQ METERSKIDNEY FAILURE: <15mL/MIN/1.73 SQ METERSTHIS TEST SHOULD ONLY BE USED FOR PATIENTS 18 YEARS OF AGE AND OLDER. Performed By: #### 2 29032 ####[place] [address] Globulin 2.9 g/dL Normal 1.5 - 3.8 [facility] Comment on above: Performed By: #### 2 63462 ####[place] [id number] Glucose mass conc 95 mg/dL Normal 74 - 106 [facility] Comment on above: Performed By: #### 2 14929 ####[place] [id number] Potassium molar conc 3.8 mmol/L Normal 3.5 - 5.1 [facility] Comment on above: Performed By: #### 2 66461 ####[place] [id number] Protein 7.2 g/dL Normal 6.4 - 8.3 [facility] Comment on above: Performed By: #### 2 46064 ####[address] [address] Sodium 140 mmol/L Normal 136 - 145 [facility] Comment on above: Performed By: #### 2 10018 ####[place] [id number] Urea nitrogen 17 mg/dL Normal 6 - 20 [facility] Comment on above: Performed By: #### 2 66668 ####[facility],[address] [place] [address] 70395 LIPID PROFILEon 07-04-2017 Cholesterol 148 mg/dL Normal 0 - 200 [facility] Comment on above: Performed By: #### 2 69330 ####[facility],[address] [place] [address] 61100 Cholesterol to HDL Ratio 2.2 {ratio} Normal 0.0 - 5.0 [facility] Comment on above: Performed By: #### 2 20022 ####[facility],[address] [place] [address] 09108 HDL Cholesterol 66 mg/dL High 40 - 60 [facility] Comment on above: Performed By: #### 2 98928 ####[facility],[address] [place] [address] 69803 LDL Cholesterol 60 mg/dl Normal 0 - 129 [facility] Comment on above: Performed By: #### 2 02557 ####[facility],[address] [place] [address] 99230 LIPID PROFILE Normal [facility] Comment on above: Result Comment: LIPI D PROFILE Performed By: #### 2 39245 ####[facility],[address] [place] [address] 07431 Triglyceride 111 mg/dL Normal 0 - 150 [facility] Comment on above: Performed By: #### 2 82574 ####[facility],[address] [place] [address] 10447 EMERGENCY DEPARTMENT SUMMARY on 06-07-2017 EMERGENCY DEPARTMENT SUMMARY [facility] EMERGENCY DEPARTMENT SUMMARY NAME NUMBER SEX AGE ADMIT DISC TYPE MED.RECORD# DIVYA GODFREY [id number] F 41 05/29/17 05/29/17 E.RYazmin [id number] ROOM:[facility] DATE OF :1975 PHYSICIAN NO.:[id number] PHYSICIAN NAME:STEPHANIE CANLEA DO PHYSICIAN:MUNA JEANE [employer] [place] HISTORY OF PRESENT ILLNESS: The patient is [...] Stephanie Canela DO TD: 18:44 JOB #: [id number] Electronically signed by: STEPHANIE CANELA DO 06/07/17 09:04 Transcribed by: am 05/30/2017 14:06 STEPHANIE CANELA DO 06/07/17 09:04 Normal [facility] INFLUENZA VIRUS RAPID A/Bon 05-29-2017 INFLUENZA VIRUS RAPID A/B INFLUENZA APOSITIVEINFLUENZA BNEGATIVEINTERNAL NEG QCPASSINTERNAL POS QCPASSEXTERNAL QC DONE?YESACCORDING TO THE SALES DATA ANALYST, THE PERFORMANCE OF THIS TEST HAS NOT [...] THECURRENT SWINE FLU IN INFECTED PATIENTS. Normal [facility] Comment on above: Performed By: #### 2 33660 ####[facility],[address] [place] [address] Vital Signs Date Time Vital Sign Value Performing Clinician Mima gutiérrez 01-29-2025 13:31-0400 Body height 147.[address] Cortez Lynch DO Work Phone: [facility] 01-29-2025 13:31-0400 Body mass index (BMI) [Ratio] 28.2 kg/m2 Dr. Cortez Lynch DO Work Phone: [facility] 01-29-2025 13:31-0400 Body temperature 97.5 [degF] Dr. Cortez Lynch DO Work Phone: [facility] 01-29-2025 13:31-0400 Body weight 61.[address] Cortez Lynch DO Work Phone: [facility] 01-29-2025 13:31-0400 Diastolic blood pressure 82 mm[Hg] Dr. Cortez Lynch DO Work Phone: [facility] 01-29-2025 13:31-0400 Heart rate 84 /min Dr. Cortez Lynch DO Work Phone: [facility] 01-29-2025 13:31-0400 Respiratory rate 16 /min Dr. Cortez Lynch DO Work Phone: [facility] 01-29-2025 13:31-0400 SaO2% (BldA) [Mass fraction] 98 % Dr. Cortez Lynch DO Work Phone: [facility] 01-29-2025 13:31-0400 Systolic blood pressure 132 mm[Hg] Dr. Cortez Lynch DO Work Phone: [facility] Encounters Encounter Date Encounter Type Care Provider Facility Start: 02-26-2025 ambulatory Cortez Lynch Facilit y:[facility] Start: 01-29-2025 End: 01-29-[address] Cortez Garcia DO -[facility] Work Phone: Start: 01-29-2025 End: 01-29-[address] Cortez Lynch DO Work Phone: -[facility] Start: 01-29-2025 End: 01-29-2025 ambulatory Cortez Lynch Facility:[facility] Start: 02-16-2022 End: 02-16-2022 ambulatory JEANE PEREZ [facility] Start: 07-04-2017 End: 07-04-2017 Ambulatory JEANE PEREZ [facility] Start: 05-29-2017 End: 05-29-2017 Emergency department patient visit STEPHANIE ODONNELL [facility] Plan of Treatment Date Care Activity Detail Author Start: 02-26-2025 MG Breast - bilateral Screening [facility] MG Breast - bilateral Screening [facility] Payers Date Payer Category Payer Self-pay 2025 Unknown [id number] 1975 Unknown [id number] 2.16.84 [id number] Unknown [id number] Unknown [id number] Unknown [id number] 2.16.8 [id number] Unknown [id number] 2.16.8 [id number] Unknown [id number] 2.16.8 [id number] Social History Date Type Detail Facility Start: 01-29-2025 Tobacco smoking stat [facility] Never smoked tobacco (finding) [facility] Sex [facility] Start: 1975 Sex Assigned At Female W [facility] Evaluation note 01-29-2025 Note Date & Type Note Facility 01-29-2025 Evaluation note Diagnosis Onset Date Resolution Annual physical exam acute Sept emb2024 1:07pm Hypertension chronic January 292024 1:07pm Menopause chronic January 1:07pm Poor dentition chronic January 29, 2025 1:07pm [facility] Work Phone: Progress note 01-29-2025 Note Date & Type Note Facility 01-29-2025 Progress note [facility] Progress note 01-29-2025 Note Date & Type Note Facility 01-29-2025 Progress note Note Date/Time January 29, 2025 2:03pm [facility] [address] [place] [address] [place] [address] OFFICE VISIT Date of Service: 01/29/25 MR#: [id number] Acct: [id number] Name: EPIFANIO STOKES Rep #: [id number] : 1975 Provider: Dr. Kristopher Lynch DO Age/Sex: 49/F Location: [facility] [place] Status: Signed Intake Vital Signs 12/27/23 11:21 01/29/25 13:31 Height 4 ft 10 in 4 ft 10 in Weight: 135 lb BMI 28.2 BP 132/82 H Blood Pressure Location Lt brachial Position Sitting Respiration 16 Pulse 84 Pulse Source Monitor Temp 97.5 F L Temp Source Temporal Pulse Oximetry (%) 98 Oxygen Delivery Method room air Intake Visit Reasons: YEARLY Chief Complaint: Blood pressure elevated in the morning. Child Adolescent Care Required: No Is patient in pain?: No Allergies No Known Allergies Allergy (Unverified 01/29/25 13:25) Medications ?Medication ?Instructions ?Recorded ?Confirmed ?Type ascorbic acid (vitamin C) 100 mg 100 mg PO DAILY 12/2601/29/25 History tablet calcium citrate 200 mg PO DAILY 12/27/23 History lisinopril 20 mg tablet 20 mg PO DAILY #90 TABLETS 0 01/22/25 01/29/25 Rx hydrochlorothiazide 12.5 mg capsule 12.5 mg PO QAM #90 caps 01/29/25 01/29/25 Rx vitamin B complex 1 tab PO QDAY 01/29/2501/29 History Nurse's Note: pt needs a refill. Pt wnder if she needs an increase in lisinopril due to some higher readings. Pt will get covid and flu shot together Pt states she has never had a mammogram Pt is not fasting for labs had cffee w/ cream and sugar a little after 9pm Pt never had colonoscopy [facility] Medical History (Updated 01/29/25 @ 14:[address] 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 Details: EPIFANIO STOKES, is a 49 F who presents to the office today for concerns that her blood pressure is elevated in the morning. She says frequently it is at 140 systolic and says it goes down after she takes her medicine but that is not terribly logical because of a slow onset of action of lisinopril. 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 She denies having had a mammogram since her last child. She appears to take very good careof her self, but she has a lot of responsibilities for her family and her parents and the stress is quite high. ROS Const Constitutional: No body ache, chills, [...] at rest, chest pain with exertion, excessive sweating,shortness of breath, dyspnea on exertion, lightheadedness, orthopnea or palpitations Gastro GI: No abdominal pain, change in bowel habits, constipation, cramping, diarrhea,nausea/dyspepsia or vomiting Genitourinary-Female: No burning urination, painful urination, urinary incontinence, [...] Orientation: oriented x3 Limitations: language barrier (Her Mosotho is quite good but she has some difficulty reading Mosotho.) HENMT Head: normal to inspection Ears: hearing grossly normal bilaterally Nose: external nose normal Face and sinus: normal facial exam Mouth: oral mucosae normal Teeth and gingiva: poor dentition Eyes General: appearance normal, both eyes and all related structures Eyelids: eyelids normal Neck Neck: normal visual inspection Thyroid: thyroid normal Resp Effort & Inspection: normal respiratory effort Auscultation: Bilateral: Clear to Auscultation Cardio Rate: regular rate Rhythm: regular rhythm Heart Sounds: no murmurs Musc Musculoskeletal: Yes joint tenderness (Bilateral knee pain but no loss of range of motion.); No decreased range of motion Skin General: no rashes or lesions noted Neuro General: patient oriented x3 Cranial Nerves: CN's II-XI intact bilaterally Extrem General: normal to inspection Psych Appearance: grossly normal Affect: normal affect Thought Process: normal Judgment: judgment good Coding Level of Care Code Off vis,est,level 3 Diagnoses Annual physical exam Z00.00 Hypertension I10 Menopause Z78.0 Poor dentition K08.9 Assessment and Plan Assessment and Plan (1) Annual physical exam: Status: Acute Plan: There is been essentially no change in her physical exam since last year. We did talk about issues with varicose veins. I assured her that the problems she has are mainly cosmetic and treatment would be support hose. I ordered a mammogram since it has been sometime since she has had that. (2) Hypertension: Status: Chronic Plan: Because of her marginal blood pressure control I have added hydrochlorothiazide. (3) Menopause: Status: Chronic Plan: She is several years postmenopausal (4) Poor dentition: Status: Chronic Plan: She has had some dental work done but needs more. Orders: Orders CBC W/Diff, Automated Today I10 - Essential (primary) hypertension Comprehensive Metabolic Profil Today I10 - Essential (primary) hypertension SCRN MAMM (CAD)W/RAMONE BILAT Today Medications: New hydrochlorothiazide 12.5 mg PO QAM 90 caps 1RF Plan Details Follow Up: 1 Year 01/29/25 1404 <Electronically signed by Cortez brar DO> Date _ Cortez Lycnh DO Cosigner Signature: Date (if applicable) CC: ~ [facility] Work Phone: Evaluation note Note Date & Type Note Facility Evaluation note Diagnosis Onset Date Resolution Annual physical exam acute Sept ember 2024 1:07pm Hypertension chronic January 292024 1:07pm Menopause chronic January 1:07pm Poor dentition chronic January 29, 2025 1:07pm [facility] Work Phone: Reason for referral (narrative) Note Date & Type Note Facility Reason for referral (narrative) No reason for referral information available [facility] Work Phone: Summary Purpose Family History No Family History Records Found Relationship Condition Age at Onset Recorded Date/T bruno sister Diabetes mellitus Unknown Advance Directives No Advanced Directives Records FoundNo Advanced Directives Records FoundNo Advanced Directives Records Found Chief Complaint and Reason for Visit Chief Complaint Admit Date YEARLY January 29, 2025 1:07pm Reason for Visit Admit Date Annual physical exam January 29 1:07pm Hypertension January 29, 2025 1:07pm Menopause January 29, 2025 1:07pm Poor dentition January 29, 2025 1:07pm Additional Source Comments INFORMATION SOURCE (unrecogn ized section and content) DATE CREATED AUTHOR 10/28/2017 [facility] DATE CREATED AUTHOR AUTHOR'S ORGANIZ ATION 03/16/2022 [facility] DATE CREATED AUTHOR AUTHOR'S ORGANIZ ATION 02/15/2025 [facility] Care Teams (unrecognized sec tion and content) Team Status: Active Member Role/Relationship Status Dates Dr. Cortez Lynch DO Primary care physician Active Team Status: Inactive Member Role/Relationship Status Dates Dr. Cortez Lynch DO Attending physician Active Start: January 29, 2025 End: January 29, 2025 Team Status: Inactive Member Role/Relationship Status Dates Dr. Cortez Lynch DO Attending physician Active Start: January 29, 2025 End: January 29, 2025 Dr. Cortez Lynch DO Referring Provider Active Start: January 29, 2025 End: January 29, 2025 Goals (unrecognized section and content) Goals may be documented in a n alternate sectionGoals may be documented in an alternate section FOR RECORDS PERTAINING TO PATIENTS WHO ARE [...] BE BASED ON THE PRIMARY CLINICAL RECORDS. [facility] provides no warranty or guarantee of the accuracy or completeness of information in this document.
--- NOTE | 2025-02-26 12:00 | BI_ITS ---
EXAM: SCRN MAMM (CAD)W/RAMONE BILAT DATE: 02/26/2025 CLINICAL HISTORY: F, Age 49 y/o , SCREENING No family history. TECHNIQUE: Procedure Code: [id number] Modality: MG Procedure: SCRN MAMM (CAD)W/RAMONE BILAT COMPARISON: Baseline examination. FINDINGS: TISSUE DENSITY: The breasts are extremely dense, which lowers the sensitivity of mammography. Bilateral Breast Mammographic Findings: No significant masses, calcifications or other abnormalities are identified. BI/SCRN MAMM (CAD)W/RAMONE BILAT IMPRESSION: Unremarkable bilateral screening mammogram. OVERALL FINAL ASSESSMENT BI-RADS 1: NEGATIVE. RECOMMENDATION: Routine annual follow-up in 1 Year Additional Recommendation none A letter with findings and recommendations will be mailed to the patient. Reading Location: [place] [address]
== END | disposition home or self-care (01) ==
PROVIDERS: PCP Family Medicine; Referring Provider Family Medicine; Visit Provider Family Medicine
DX: Z12.31 Encounter for screening mammogram for malignant neoplasm of breast (principal)
CPT/HCPCS: 77063; 77067